=== PATIENT | female | born 1950 | race Caucasian/White ===

== ENCOUNTER → 2020-05-21 18:00 | Observation (INO) ==
[2020-05-19 23:34] VITALS: BMI 23.1
[2020-05-20 00:13] LABS: BASOPHILS # (AUTO) 0.1 X10^3/uL (0.0-0.1); BASOPHILS % (AUTO) 0.8 % (0.2-1.0); EOSINOPHILS % (AUTO) 0.3 % (0.9-2.9); HEMATOCRIT 35.5 % (36.0-47.0); HEMOGLOBIN 11.3 g/dL (12.0-16.0); LYMPHOCYTES # (AUTO) 1.4 X10^3/uL (1.3-2.9); MEAN CORPUSCULAR HEMOGLOBIN 25.9 pg (27.0-34.0); MEAN CORPUSCULAR VOLUME 81.2 fL (80.0-100.0); MEAN PLATELET VOLUME 8.4 fL (7.4-11.0); MONOCYTES # (AUTO) 0.5 x10^3/uL (0.3-0.8); MONOCYTES % (AUTO) 7.2 % (0.0-13.0); NEUTROPHILS % (AUTO) 71.7 % (42.0-75.0); PLATELET COUNT 334 X10^3/uL (150.0-450.0); RED BLOOD COUNT 4.37 X10^6/uL (3.5-5.4); RED CELL DISTRIBUTION WIDTH 17.4 % (11.6-16.5)
[2020-05-20 00:19] LABS: ALANINE AMINOTRANSFERASE 23 Units/L (12-78); ALBUMIN 3.9 g/dL (3.4-5.0); ALKALINE PHOSPHATASE 74 Units/L (46-116); ASPARTATE AMINO TRANSFERASE 29 Units/L (15-37); BLOOD UREA NITROGEN 16 mg/dL (7-18); CALCIUM 9.7 mg/dL (8.5-10.1); CARBON DIOXIDE 25.4 mmol/L (21-32); CHLORIDE 95 mmol/L (98-107); COR NA(FOR HYPERGLY) 136 mmol/L (136-145); CREATININE 1.21 mg/dL (0.55-1.02); SODIUM 134 mmol/L (136-145); TOTAL PROTEIN 8.8 g/dL (6.4-8.2); eGFR NON BLACK RACES 47 (>60)
[2020-05-20 00:35] LABS: PLATELET MORPHOLOGY COMMENT NORMAL (NORMAL)
[2020-05-20 00:41] LABS: AMMONIA < 10 umol/L (11-32)
[2020-05-20] MEDS: ROCEPHIN VIAL 1 GRAM 1 G in NS 100 ML IV + SPIKE MINIBAG* 100 ML IV SCH ×2 (01:25→20:46)
[2020-05-20 03:51] LABS: BILIRUBIN,URINE NEGATIVE (NEGATIVE); BLOOD/HEMOGLOBIN,URINE 1+ (NEGATIVE); GLUCOSE, URINE NEGATIVE (NEGATIVE); KETONES,URINE 3+ (NEGATIVE); LEUKOCYTE ESTERASE ,URINE 2+ (NEGATIVE); NITRITES,URINE POSITIVE (NEGATIVE); PROTEIN,URINE 1+ (NEGATIVE); UROBILINOGEN,URINE NORMAL (NORMAL)
[2020-05-20 04:05] LABS: APPEARANCE,URINE SLIGHTLY HAZY (CLEAR); BACTERIA,URINE 1+ /HPF (NEGATIVE); COLOR,URINE YELLOW (YELLOW); RBC,URINE 0-2 /HPF (0-3); SQUAMOUS EPITHELIAL CELL,UR RARE /HPF (NEGATIVE)
--- NOTE | 2020-05-20 05:59 | RAD ---
HISTORYAMSSTUDYCHEST, 1 VIEWCOMPARISONNoneTECHNIQUEAP view of the chestFINDINGSStatus post median sternotomy.[The cardiac and mediastinal contours are within normal limits. The lungs are clear without focal consolidation or segmental collapse. No pleural effusion or pneumothorax.]IMPRESSIONNo acute pulmonary process.Electronically signed by: Gasper Alvares (May 20, 2020 05:57:58)
[2020-05-20 08:48] LABS: CKMB % 0.3 % (<4); CREATINE KINASE 360 Units/L (26-192); TROPONIN I < 0.02 ng/mL (0-1.5)
[2020-05-20 09:12] LABS: LACTIC ACID 1.8 mmol/L (0.4-2.0)
[2020-05-20] MEDS: PLAVIX PO SCH (09:19)
[2020-05-20] MEDS: LOVENOX INJ 40 MG SYR SC SCH (09:19)
[2020-05-20] MEDS: SYNTHROID 125 mcg TAB PO SCH (09:19)
[2020-05-20] MEDS: LOPRESSOR TAB 50 MG PO SCH (09:19)
--- NOTE | 2020-05-20 12:07 | CT ---
HISTORY:Altered mental statusStudy: CT brain without contrastComparison:NoneTechnique:Multiple axial images of the brain were obtained without administration of IV contrast. Dose reduction techniques including Automated Exposure Control (AEC) and adjustment of mA and kV were utilized.Findings:There is cerebral volume loss with nonspecific white matter hypoattenuation suggestive of chronic microvascular ischemic changes. There is calcified plaque within the carotid and vertebral arteriesNo evidence of acute hemorrhage, midline shift, mass effect or abnormal extra-axial fluid collection. The ventricular system is symmetric and nondilated.The soft tissues and osseous structures are unremarkable. The visualized paranasal sinuses are clear.IMPRESSION:1. Cerebral volume loss and nonspecific white matter changes as described without acute intracranial abnormality.Electronically signed by: MYRANDA TYLER (May 20, 2020 13:07:01)
--- NOTE | 2020-05-20 12:24 | CT ---
HISTORYABD PAIN, nephrolithiasisSTUDYCT ABDOMEN/PELVIS with IV contrastCOMPARISONCT 09/30/2019TECHNIQUEMultiple axial images of the abdomen and pelvis were obtained from the lung bases to the pubic symphysis after the administration of IV contrast. 100 cc Omnipaque 350 IV contrast. Dose reduction techniques including Automated Exposure Control (AEC) and adjustment of mA and kV were utilized.FINDINGSThe visualized portions of the lung bases suggest 2 small right lower lobe lung nodules measuring approximately 5 mm in size each. These are similar to prior study. Please see further description on CT chest report from 03/02/2019 at [facility]. Follow-up chest CT is recommended. There is cardiomegaly without suggestion of CHF.Small accessory splenule is seen. There is fatty infiltration of the liver. In the superior aspect of the left hepatic lobe there is a 4 mm hypodensity that is not seen on prior unenhanced exam. It is likely a cyst but cannot be confirmed.Prior cholecystectomy. No biliary ductal dilation.No pancreatic abnormality is seen.The adrenal glands appear normal.No left renal stones are seen but there are likely 2 tiny right renal stones. No hydronephrosis. Likely mild ureterectasis bilaterally, less prominent than prior study. Bladder appears normal. Phleboliths are seen in the pelvis.No bowel abnormalities are seen. Appendix is not seen but no pericecal inflammation is seen.No adnexal masses are seen.Abdominal aorta is normal in size.No suspicious lymphadenopathy.No free intraperitoneal air or fluid is seen.Prominent compression deformity of L2 has worsened since prior study. It has associated vacuum phenomena. There is prominent displacement of the posterior cortex into the central canal causing probable thecal sac compression. Orthopedic hardware is seen in the femurs.IMPRESSIONWorsening L2 compression fracture with prominent displacement of the posterior cortex into the central canal. There is probable thecal sac compression.Mild persistent ureterectasis is seen without hydronephrosis. No ureteral stones are seen. Two tiny nonobstructing right renal stones are suspected.Lung nodules. Follow-up chest CT is recommended based upon 03/02/2019 exam report if this has not been performed previously.Electronically signed by: Bonifacio Lopez (May 20, 2020 12:23:57)
[2020-05-20] MEDS: NS 1000 ML 1,000 ML IV SCH ×2 (13:41)
[2020-05-21] MEDS: NS 1000 ML 1,000 ML IV SCH ×2 (02:08→16:56)
[2020-05-21 06:14] LABS: BASOPHILS # (AUTO) 0.1 X10^3/uL (0.0-0.1); BASOPHILS % (AUTO) 0.9 % (0.2-1.0); EOSINOPHILS # (AUTO) 0.1 x10^3/uL (0.0-0.2); EOSINOPHILS % (AUTO) 1.5 % (0.9-2.9); HEMATOCRIT 35.7 % (36.0-47.0); HEMOGLOBIN 11.5 g/dL (12.0-16.0); LYMPHOCYTES # (AUTO) 2.2 X10^3/uL (1.3-2.9); LYMPHOCYTES % (AUTO) 34.5 % (21.0-51.0); MEAN CORPUSCULAR HEMOGLOBIN 26.1 pg (27.0-34.0); MEAN CORPUSCULAR HGB CONC 32.3 g/dL (33.0-35.0); MEAN CORPUSCULAR VOLUME 80.8 fL (80.0-100.0); MONOCYTES # (AUTO) 0.6 x10^3/uL (0.3-0.8); MONOCYTES % (AUTO) 9.2 % (0.0-13.0); NEUTROPHILS # (AUTO) 3.4 x10^3/uL (2.2-4.8); NEUTROPHILS % (AUTO) 53.9 % (42.0-75.0); PLATELET COUNT 314 X10^3/uL (150.0-450.0); RED BLOOD COUNT 4.42 X10^6/uL (3.5-5.4); RED CELL DISTRIBUTION WIDTH 17.9 % (11.6-16.5); WHITE BLOOD COUNT 6.4 X10^3/uL (3.6-10.0)
[2020-05-21 06:34] LABS: ALANINE AMINOTRANSFERASE 20 Units/L (12-78); ALBUMIN 3.4 g/dL (3.4-5.0); ALKALINE PHOSPHATASE 69 Units/L (46-116); ASPARTATE AMINO TRANSFERASE 33 Units/L (15-37); BLOOD UREA NITROGEN 9 mg/dL (7-18); CALCIUM 8.6 mg/dL (8.5-10.1); CARBON DIOXIDE 22.8 mmol/L (21-32); CHLORIDE 99 mmol/L (98-107); COR NA(FOR HYPERGLY) 136 mmol/L (136-145); CREATININE 0.99 mg/dL (0.55-1.02); SODIUM 135 mmol/L (136-145); TOTAL PROTEIN 8.1 g/dL (6.4-8.2); eGFR NON BLACK RACES 59 (>60)
[2020-05-21] MEDS: LOVENOX INJ 40 MG SYR SC SCH (08:45)
[2020-05-21] MEDS: SYNTHROID 125 mcg TAB PO SCH (08:45)
[2020-05-21] MEDS: PLAVIX PO SCH (08:45)
[2020-05-21] MEDS: LOPRESSOR TAB 50 MG PO SCH (08:45)
[2020-05-21 08:50] LABS: FREE T4 (FREE THYROXINE) 1.62 ng/dL (0.76-1.46); TSH (3RD GENERATION) 3.297 uIU/mL (0.358-3.74)
[2020-05-21 14:02] VITALS: BP 165/77
--- NOTE | 2020-05-21 17:51 | DR.H&P ---
H&P - History & Physical for Day of: H&P Date: 05/19/20 - Chief Complaint Chief Complaint: AMS - History of Present Illness History of Present Illness: PT IS 69 WF DIRECT ADMIT WITH CO INCREASED CONFUSION. PT HAS PMH OF OA, HTN AND RECENT UTI REQUIRING IV ATBX THERAPY X 2 WEEKS. PT SPOUSE REPORTS SHE HAD HAD CT HEAD "RECENTLY" NEGATIVE FOR STROKE. - Past Medical History Past Medical History: Anxiety, Arthritis, GERD, Hypertension - Past Surgical History Surgical History: CABG/Valve Surgery, Carotid Endarterectomy, Hysterectomy, Ortho Surgery, Lithotripsy - Family History Family Medical History: Diabetes Mellitus, Hypertension - Social History Does patient currently use any type of tobacco product: No Have you used tobacco products in the last 12 months: Yes Type of Tobacco Use: None Alcohol Use: None Drug Use: None - Medications Home Medications: codeine Adverse Reaction (Verified 05/19/20 23:22) levofloxacin [From Levaquin] Adverse Reaction (Verified 05/19/20 23:22) Penicillins Adverse Reaction (Verified 05/19/20 23:22) CONTINUE taking the following medications clopidogrel [Plavix] 75 mg PO DAILY 05/19/20 [History] duloxetine 60 mg PO DAILY 05/19/20 [History] ergocalciferol (vitamin D2) [Vitamin D2] 50,000 unit PO WEEKLY 05/19/20 [History] gabapentin See Rx Instructions .ROUTE .COMPLEX 05/19/20 [History] levothyroxine [Euthyrox] 125 mcg PO DAILY 05/19/20 [History] metformin 500 mg PO BIDWMEAL 05/19/20 [History] methotrexate sodium 2.5 mg PO DAILY 05/19/20 [History] metoprolol tartrate 50 mg PO DAILY 05/19/20 [History] pravastatin 10 mg PO HS 05/19/20 [History] tamsulosin [Flomax] 0.4 mg PO DAILY 05/19/20 [History] tramadol 50 mg PO Q6HR 05/19/20 [History] New Prescriptions cefuroxime axetil 500 mg PO BID #20 tab 05/21/20 [Rx] - Review of Systems Constitutional: Weakness Eyes: No Symptoms Reported Respiratory: No Symptoms Reported Cardiovascular: No Symptoms Reported Gastrointestinal: Nausea Genitourinary: Frequency Musculoskeletal: No Symptoms Reported Skin: No Symptoms Reported Neurological: Confusion - Physical Exam Vital Signs: Temperature 99.2 F Pulse Rate [Right Brachial] 55 Respiratory Rate 18 Blood Pressure [Right Arm] 165/77 Blood Pressure [Left Arm] 185/93 O2 Sat by Pulse Oximetry 98 Oriented: Normal Eyes: Normal Ear: Normal Nose: Normal Throat: Normal Respiratory: Clear Throughout Cardiovascular: Normal : Normal Auscultation: Bowel Sounds: Normal Palpation: Normal Tenderness: Normal Skin: Decreased Turgur Musculoskeletal: Back:Lumbar Psychiatric: Anxiety Affect: Anxious Speech Pattern: Inappropriate - Assessment/Plan (1) AMS (altered mental status) Status: Acute Plan: ADMIT, CT HEAD R/O CVA. BLOOD AND URINE CULTURES. IV HYDRATION. BP CONTROL, VERIFY HOME MEDICATIONS. CXR ON ADMISSION (2) UTI (urinary tract infection) Status: Acute - Allergies Allergies/Adverse Reactions: Allergies Allergy/AdvReac Type Severity Reaction Status Date / Time codeine AdvReac Verified 05/19/20 23:22 levofloxacin [From Levaquin] AdvReac Verified 05/19/20 23:22 Penicillins AdvReac Verified 05/19/20 23:22
[~2020-05-21 18:00] MED LIST: APRESOLINE INJ 20 MG VIAL IVP PRN; CATAPRES TAB 0.1 MG ONE; CATAPRES TAB 0.1 MG PO PRN; CEFTIN PO ONE; HumuLIN R SUBCUT PRN; LOPRESSOR TAB 50 MG ONE; NS 1000 ML 1,000 ML ONE; NS IV ONE; PLAVIX ONE; PRAVACHOL PO ONE; PRAVACHOL PO SCH; ROCEPHIN IV ONE; SNACK - Diabetic Appropriate PO SCH; SPIKE MINIBAG IV ONE; SYNTHROID 125 mcg TAB ONE; ZESTRIL TAB 5 MG PO SCH
== END | disposition home or self-care (01) ==
LOC: MED/SURG
PROVIDERS: ADMIT Internal Medicine; ATTEND Internal Medicine
DX: E86.0 Dehydration; M19.90 Unspecified osteoarthritis, unspecified site; R26.89 Other abnormalities of gait and mobility; N39.0 Urinary tract infection, site not specified; B96.89 Other specified bacterial agents as the cause of diseases classified elsewhere; I10 Essential (primary) hypertension; R41.82 Altered mental status, unspecified; E03.8 Other specified hypothyroidism